=== PATIENT | male | born 1985 | race Hispanic/Latino ===

== ENCOUNTER 2021-09-29 20:18 | Emergency (ER) | payer OTHER ==
[~2021-09-29] VITALS: Ht 175.3 cm; Wt 90.7 kg
[2021-09-29] MEDS ORDERED: KETOROLAC TROMETHAMINE 30 MG/ML VIAL IM STA (20:42)
[2021-09-29] MEDS ORDERED: NAPROXEN250 MG PO (20:44)
[2021-09-29] MEDS ORDERED: LIDOCAINE HCL 4% 50 ML BTL TOP ONE (20:45)
[2021-09-29] MEDS ORDERED: METHOCARBAMOL500 MG PO (20:46)
[2021-09-29] MEDS ORDERED: LIDOCAINE1 EAC1 EXT (20:46)
[2021-09-29] MEDS ORDERED: LIDOCAINE 4% PATCH TP ONE ×3 (21:05→21:29)
== END 2021-09-29 22:02 | disposition home or self-care (01) ==
LOC: ER 20:20
DX: M25.562 Pain in left knee (principal); M54.50 Low back pain, unspecified; W18.49XA Other slipping, tripping and stumbling without falling, initial encounter; Y93.01 Activity, walking, marching and hiking; Y99.0 Civilian activity done for income or pay
CPT/HCPCS: 72100; 73562; 99283; J1885